=== PATIENT | male | born 2000 | race Caucasian/White ===

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

== ENCOUNTER 2020-12-09 16:18 | Emergency (ER) | payer BC ==
[~2020-12-09] VITALS: Ht 185.4 cm; Wt 84.1 kg
[~2020-12-09 16:18] MED LIST changes: +CLEOCIN HCL300 MG PO; +PREDNISONE20 MG PO
[2020-12-09 16:26] VITALS: TEMP 97.4
[2020-12-09 16:53] LABS: BASO % 0.2 % (0.0-2.0); EOS % 0.3 % (0-4.0); GRAN # 9.5 (1.4-6.5); GRAN % 79.4 % (42.2-75.2); HEMATOCRIT 48.2 % (36.0-47.0); HEMOGLOBIN 17.1 g/dl (12.5-16.1); LYMPH # 1.4 (1.2-3.4); LYMPH % 11.6 % (20.0-51.0); MEAN CELL VOLUME 84 fl (80.0-95.0); MEAN CORPUSCULAR HEMOGLOBIN 30 pg (26.0-32.0); MEAN CORPUSCULAR HGB CONC 36 g/dl (33.0-37.0); MEAN PLATELET VOLUME 9.4 fl (7.4-10.4); MONO % 8.3 % (1.7-9.3); PLATELET COUNT 289 K/mm3 (130-400); RED BLOOD COUNT 5.71 M/mm3 (4.20-5.60); REDCELL DISTRIBUTION WIDTH-CV 12.4 % (11.5-14.5)
[2020-12-09 17:08] LABS: CALCIUM 10.9 mg/dL (8.4-10.2); CREATININE, serum 0.83 (0.66-1.25); MAGNESIUM 1.6 mg/dL (1.6-2.3); POTASSIUM 3.3 mmol/L (3.4-5.0)
[2020-12-09 17:39] LABS: TSH w REFLEX 1.29 uIU/mL (0.465-4.680)
[2020-12-09 18:35] VITALS: BP 123/71; PULSE 78
== END 2020-12-09 18:40 | disposition home or self-care (01) ==
LOC: COL.ER 16:18
PROVIDERS: Emergency Medicine
DX: F15.129 Other stimulant abuse with intoxication, unspecified (principal); F10.129 Alcohol abuse with intoxication, unspecified
CPT/HCPCS: J2060; J7030

== ENCOUNTER 2021-06-14 22:23 | Emergency (ER) | payer BC ==
[~2021-06-14] VITALS: Ht 188 cm; Wt 84.1 kg
[2021-06-14 22:29] VITALS: TEMP 97.2
[2021-06-15 00:31] VITALS: BP 124/78; PULSE 76
== END 2021-06-15 00:31 | disposition home or self-care (01) ==
LOC: COL.ER 22:23
DX: T78.40XA Allergy, unspecified, initial encounter (principal)
CPT/HCPCS: J2930; J7030

== ENCOUNTER 2021-10-18 01:00 | Emergency (ER) | payer BC ==
[2021-10-18 01:24] VITALS: TEMP 98.5
[2021-10-18] MEDS ORDERED: AMOXICILLIN 8751 TAB PO (07:52)
[2021-10-18 08:05] VITALS: BP 135/94; PULSE 68
== END 2021-10-18 08:00 | disposition home or self-care (01) ==
LOC: COL.ER 01:00
DX: S01.311A Laceration without foreign body of right ear, initial encounter (principal); F17.210 Nicotine dependence, cigarettes, uncomplicated; W50.0XXA Accidental hit or strike by another person, initial encounter